=== PATIENT | male | born 1985 ===

== ENCOUNTER 2017-05-30 21:12 | Emergency (ER) | payer BC, OTHER ==
--- NOTE | 2017-05-30 22:10 | UC ---
Throat Pain/Nasal Hernan HPI - HPI Summary HPI Summary: 32 y/o male presents the urgent care c/o fever, chills w/ sore throat for the past 2 days. Pt has taken Tylenol and ibuprofen to alleviate symptoms. Sore throat w/ difficulty swallowing, pain is 3/10. Denies cough, SOB, chest pain, N /V/D. Pt has not other complains. - History of Current Complaint Chief Complaint: UCGeneralIllness Stated Complaint: CHILLS,FEVER Time Seen by Provider: 05/30/17 22:01 Hx Obtained From: Patient Onset/Duration: Gradual Onset, Lasting Days, Still Present Severity: Moderate Pain Intensity: 3 Pain Scale Used: 0-10 Numeric Associated Signs & Symptoms: Positive: Dysphagia, Fever. Negative: Sinus Discomfort, Nasal Discharge, Vomiting, Rash - Epiglottits Risk Factors Epiglottis Risk Factors: Negative - Allergies/Home Medications Allergies/Adverse Reactions: Allergies Allergy/AdvReac Type Severity Reaction Status Date / Time Levofloxacin [From Levaquin] Allergy Rash Verified 05/30/17 21:22 Home Medications: Home Medications Gabapentin TAB(NF) [Neurontin 600 mg TAB(NF)] 600 mg PO BID 05/30/17 [History Confirmed 05/30/17] QUEtiapine TAB* [Seroquel TAB*] 200 mg PO DAILY 05/30/17 [History Confirmed ] PMH/Surg Hx/FS Hx/Imm Hx Previously Healthy: Yes - Surgical History Surgical History: None - Family History Known Family History: Positive: None - Social History Occupation: Employed Full-time Lives: With Family Alcohol Use: None Substance Use Type: None Smoking Status (MU): Never Smoked Tobacco Review of Systems Constitutional: Fever, Chills Skin: Negative Eyes: Negative ENT: Sore Throat Respiratory: Negative Cardiovascular: Negative Gastrointestinal: Negative Genitourinary: Negative Motor: Negative Neurovascular: Negative Musculoskeletal: Negative Neurological: Negative Psychological: Negative All Other Systems Reviewed And Are Negative: Yes Physical Exam Triage Information Reviewed: Yes Appearance: Well-Appearing, No Pain Distress, Well-Nourished, Thin Vital Signs: Initial Vital Signs Temp 98.3 F 05/30/17 21:17 Pulse 96 05/30/17 21:17 Resp 18 05/30/17 21:17 BP 145/82 05/30/17 21:17 Pulse Ox 100 05/30/17 21:17 Vital Signs Reviewed: Yes Eye Exam: Normal Eyes: Positive: Conjunctiva Clear - PERRLS, EOMI, fundi grossly normal ENT: Positive: Normal ENT inspection, Pharyngeal erythema - positive exudate, TMs normal, Tonsillar swelling, Tonsillar exudate Dental Exam: Normal Neck exam: Normal Neck: Positive: Supple, Nontender, Enlarged Nodes @ - anterior cervical lypm node Respiratory Exam: Normal Respiratory: Positive: Chest non-tender, Lungs clear, Normal breath sounds Cardiovascular Exam: Normal Cardiovascular: Positive: RRR, No Murmur, Pulses Normal Abdominal Exam: Normal Abdomen Description: Positive: Nontender, No Organomegaly, Soft. Negative: CVA Tenderness (R), CVA Tenderness (L) Bowel Sounds: Positive: Present Musculoskeletal Exam: Normal Musculoskeletal: Positive: Strength Intact, ROM Intact, No Edema Neurological Exam: Normal Psychological Exam: Normal Skin Exam: Normal Throat Pain/Nasal Course/Dx - Course Course Of Treatment: 32 y/o male presents the urgent care c/o fever, chills w/ sore throat for the past 2 days. Pt has taken Tylenol and ibuprofen to alleviate symptoms. Sore throat w/ difficulty swallowing, pain is 3/10. Denies cough, SOB, chest pain, N/V/D. Pt has not other complains.HX obtaqined. PE abnormal findings:ENT: Positive: Normal ENT inspection, Pharyngeal erythema - positive exudate, TMs normal, Tonsillar swelling, Tonsillar exudate. Rapid strep ordered: result: positive. Pr given first dose amoxicillin 500mg PO at the clinic since pharmacy is closed. Rx Amoxicillin. Pt BP: 145/82. Advsied to monitor blood pressure and decrease salt in diet and if continue to be elevated to f/u with his PCP. Pt understood and agreed. - Differential Dx/Diagnosis Differential Diagnosis/HQI/PQRI: Laryngitis, Mononucleosis, Otitis Media, Pharyngitis, Tonsillitis, URI Provider Diagnoses: 1-Strep pharyngitis. 2-Elevated blood pressure w/o Hx of HTN Discharge - Discharge Plan Condition: Stable Disposition: HOME Prescriptions: Amoxicillin PO (*) [Amoxicillin 875 MG (*)] 875 mg PO BID #20 tab Patient Education Materials: Strep Throat (ED), Low Sodium Diet (ED) Referrals: No Primary Care Phys,NOPCP [Primary Care Provider] - [facility] [Outside] - If Needed Additional Instructions: Please take full course of antibiotic as directed to avoid recurrence or resistance. Please take ibuprofen after meals to alleviate pain and swelling. If symptoms do not improve or worsen please return to the urgent care or f/u with your PCP for further evaluation and treatment. Your blood pressure is elevated today, please decrease salt in your diet and monitor your BP, if it continues to be elevated please f/u with your PCP for further management.
[2017-05-30] MEDS ORDERED: Amoxicillin PO (*) 500 MG CAP PO ONE (22:21)
== END 2017-05-30 22:35 | disposition home or self-care (01) ==
LOC: UCEAST 21:12
DX: J02.0 Streptococcal pharyngitis (principal); R03.0 Elevated blood-pressure reading, without diagnosis of hypertension; Z88.1 Allergy status to other antibiotic agents
CPT/HCPCS: 87651; 99202; A9270-GY; G0463

== ENCOUNTER 2017-06-20 19:04 | Emergency (ER) | payer BC ==
[2017-06-20 19:10] VITALS: BP 142/95
--- NOTE | 2017-06-20 19:51 | UC ---
Knee Pain HPI - HPI Summary HPI Summary: FOUR DAYS OF WORSENING RIGHT KNEE PAIN. TENDER BEHIND KNEE AND CALF, RADIATES TO FRONT OF KNEE AND DOWN LEG. NO KNOWN INJURY. FLEW FROM [place] 06/16/17. PAIN PROGRESSIVELY WORSE. NO SOB. NO CHEST PAIN. - History of Current Complaint Chief Complaint: UCLowerExtremity Stated Complaint: KNEE PAIN Time Seen by Provider: 06/20/17 19:21 Hx Obtained From: Patient Onset/Duration: Gradual Onset, Lasting Days, Worse Since - PROGRESSIVE Severity Initially: Mild Severity Currently: Moderate Pain Intensity: 8 Pain Scale Used: 0-10 Numeric Character: Dull, Aching, Spasmodic Aggravating Factor(s): Movement, Weight Bearing Alleviating Factor(s): Nothing Associated Signs And Symptoms: Positive: Swelling Able to Bear Weight: Yes - Risk Factors Septic Arthritis Risk Factor: Negative Gout Risk Factor: Negative - Allergies/Home Medications Allergies/Adverse Reactions: Allergies Allergy/AdvReac Type Severity Reaction Status Date / Time Levofloxacin [From Levaquin] Allergy Rash Verified 06/20/17 19:10 Home Medications: Home Medications Acetaminophen [Mapap] 1,000 mg PO PRN 06/20/17 [History] Ibuprofen TAB* [Advil TAB*] 400 mg PO PRN 06/20/17 [History] PMH/Surg Hx/FS Hx/Imm Hx Previously Healthy: Yes - Surgical History Surgical History: Yes Surgery Procedure, Year, and Place: SINUS SURGERY, HERNIA REPAIR - Family History Known Family History: Positive: None Negative: Blood Disorder - NO HISTORY OF CLOTS OR PES - Social History Occupation: Employed Full-time Lives: With Family Alcohol Use: None Substance Use Type: None Smoking Status (MU): Never Smoked Tobacco Type: Smokeless Tobacco Review of Systems Constitutional: Negative Skin: Negative Eyes: Negative ENT: Negative Respiratory: Negative Cardiovascular: Negative Gastrointestinal: Negative Genitourinary: Negative Motor: Negative Neurovascular: Negative Musculoskeletal: Arthralgia, Calf Tenderness, Edema - MILD, Myalgia Neurological: Negative Psychological: Negative All Other Systems Reviewed And Are Negative: Yes Physical Exam Triage Information Reviewed: Yes Appearance: Well-Appearing, Well-Nourished, Pain Distress Vital Signs: Initial Vital Signs Temp 98.5 F 06/20/17 19:07 Pulse 88 06/20/17 19:07 Resp 20 06/20/17 19:07 BP 142/95 06/20/17 19:07 Pulse Ox 96 06/20/17 19:07 Vital Signs Reviewed: Yes Eye Exam: Normal ENT Exam: Normal ENT: Positive: Normal ENT inspection, Hearing grossly normal, TMs normal Dental Exam: Normal Neck exam: Normal Neck: Positive: Supple, Nontender Respiratory Exam: Normal Respiratory: Positive: Chest non-tender, Lungs clear, Normal breath sounds, No respiratory distress, No accessory muscle use Cardiovascular Exam: Normal Cardiovascular: Positive: RRR, No Murmur, Pulses Normal Abdominal Exam: Normal Musculoskeletal: Positive: ROM Intact, Strength Limited @ - RIGHT KNEE, Edema @ - RIGHT POPLITEAL FOSSA, Other: - RIGHT CALF AND POPLITEAL FOSSA TENDERNESS Neurological Exam: Normal Psychological Exam: Normal Skin Exam: Normal Knee Pain Course/Dx - Course Course Of Treatment: PATIENT ADVISED TO SEEK CARE AT EMERGENCY DEPARTMENT FOR EVALUATION OF RIGHT KNEE PAIN. PATIENT REFUSED AMBULANCE, ELECTED TO DRIVE TO ED BY PRIVATE CAR. - Differential Dx/Diagnosis Differential Diagnosis/HQI/PQRI: DVT, Fracture (Closed), Internal Derangement Of Knee, Infection, Patellofemoral Syndrome, Sprain, Strain Provider Diagnoses: RIGHT KNEE PAIN Discharge - Discharge Plan Condition: Stable Disposition: HOME Patient Education Materials: Knee Pain (ED) Referrals: [facility] [Outside] No Primary Care Phys,NOPCP [Primary Care Provider] - Additional Instructions: YOU HAVE NONTRAUMATIC PAIN IN BEHIND YOUR RIGHT KNEE. WE STRONGLY ADVISE YOU TO TRAVEL IMMEDIATELY TO THE EMERGENCY DEPARTMENT OF EVALUATION OF YOUR KNEE/LEG PAIN. AN ULTRASOUND MAY BE REQUIRED.
== END 2017-06-20 19:41 | disposition home or self-care (01) ==
LOC: UCEAST 19:04
DX: M25.561 Pain in right knee (principal); Z88.1 Allergy status to other antibiotic agents
CPT/HCPCS: 99211; G0463

== ENCOUNTER 2017-06-20 20:24 | Emergency (ER) | payer BC ==
[2017-06-20 20:38] VITALS: BP 141/92
--- NOTE | 2017-06-20 21:54 | RAD ---
INDICATION: Right leg edema. COMPARISON: There are no prior studies available for comparison. TECHNIQUE: Multiple real-time, color flow and Doppler tracings of the right lower extremity were obtained. FINDINGS: The common femoral, femoral, profunda femoral and popliteal veins all demonstrate normal compressibility, augmentation with compression and phasic response with respiration. The posterior tibial and peroneal veins demonstrate normal compressibility and augmentation with compression. There is a popliteal fossa cyst cyst measuring 5.1 x 2.3 x 4.2 cm. IMPRESSION: 1. NO EVIDENCE FOR DEEP VENOUS THROMBOSIS. 2. LARGE POPLITEAL FOSSA CYST.
[2017-06-20] MEDS ORDERED: predniSONE TAB* 20 MG PO ONE (22:28)
--- NOTE | 2017-06-20 22:28 | ED ---
Lower Extremity - HPI Summary HPI Summary: 32M presents with right leg swelling for 4 days. He denies any recent injury or history of DVT. He had recent flight to [place] which returned 06/16/17. He has history of hip pain. He does not smoke. He denies any family history of blood clots. He denies any chest pain or SOB. He has been taking ibuprofen. He denies any back pain. - History of Current Complaint Chief Complaint: EDExtremityLower Stated Complaint: RT LEG AND KNEE SWOLLEN Time Seen by Provider: 06/20/17 20:46 Pain Intensity: 8 - Allergies/Home Medications Allergies/Adverse Reactions: Allergies Allergy/AdvReac Type Severity Reaction Status Date / Time Levofloxacin [From Levaquin] Allergy Rash Verified 06/20/17 20:38 PMH/Surg Hx/FS Hx/Imm Hx Endocrine/Hematology History: Denies: Hx Diabetes, Hx Thyroid Disease Cardiovascular History: Denies: Hx Hypertension Respiratory History: Denies: Hx Asthma, Hx Chronic Obstructive Pulmonary Disease (COPD) GI History: Denies: Hx Ulcer - Surgical History Surgery Procedure, Year, and Place: SINUS SURGERY, HERNIA REPAIR Infectious Disease History: Yes Infectious Disease History: Denies: Hx Clostridium Difficile, Hx Hepatitis, Hx Human Immunodeficiency Virus (HIV), Hx of Known/Suspected MRSA, Hx Shingles, Hx Tuberculosis, Hx Known/ Suspected VRE, Hx Known/Suspected VRSA, History Other Infectious Disease, Traveled Outside the in Last 30 Days - Family History Known Family History: Positive: None Negative: Blood Disorder - NO HISTORY OF CLOTS OR PES - Social History Alcohol Use: None Substance Use Type: Reports: None Smoking Status (MU): Never Smoked Tobacco Type: Smokeless Tobacco Review of Systems Negative: Fever Negative: Chest Pain Negative: Shortness Of Breath Positive: Edema - right leg All Other Systems Reviewed And Are Negative: Yes Physical Exam Triage Information Reviewed: Yes Vital Signs On Initial Exam: Initial Vitals Temp Pulse Resp BP Pulse Ox 97.8 F 77 20 141/92 97 06/20/17 20:35 06/20/17 20:35 06/20/17 20:35 06/20/17 20:35 06/20/17 20:35 Vital Signs Reviewed: Yes Appearance: Positive: Well-Appearing Skin: Positive: Warm, Dry Head/Face: Positive: Normal Head/Face Inspection Eyes: Positive: Normal, EOMI, AMANDA, Conjunctiva Clear Respiratory/Lung Sounds: Positive: Clear to Auscultation, Breath Sounds Present Cardiovascular: Positive: Normal, RRR Musculoskeletal: Positive: Strength/ROM Intact - right extremity, Edema Right - leg, Other - good pulses, capillary refill< 2 secs, tenderness along edema. Negative: Justina Sign Right Diagnostics - Vital Signs Vital Signs Temp Pulse Resp BP Pulse Ox 06/20/17 20:50 97.8 F 77 20 141/92 97 06/20/17 20:35 97.8 F 77 20 141/92 97 - Laboratory Lab Statement: Any lab studies that have been ordered have been reviewed, and results considered in the medical decision making process. - Ultrasound No standard instances Ultrasound Interpretation: No Acute Changes Ultrasound Interpretation Completed By: Radiologist Lower Extremity Course/Dx - Course Course Of Treatment: 32M presents with right leg swelling for 4 days. He denies any recent injury or history of DVT. He had recent flight to [place] which returned 06/16/17. He has history of hip pain. He does not smoke. He denies any family history of blood clots. He denies any chest pain or SOB. He has been taking ibuprofen. He denies any back pain. on exam edema noted of leg. u/s normal. will treat with prednisone. patient understands and agrees with plan. - Diagnoses Differential Diagnosis/HQI/PQRI: Positive: DVT, Sprain, Strain Provider Diagnoses: Right leg pain Discharge - Discharge Plan Condition: Good Disposition: HOME Prescriptions: Methylprednisolone [Medrol Dosepak 4 MG*] 4 mg PO .SEE ARY INSTRUCTION #1 packet Patient Education Materials: Leg Edema (ED) Referrals: [facility] [place] [facility] [Outside] Additional Instructions: Take Tylenol or ibuprofen every 6 hours as needed for pain Take steroid pack as prescribed Apply ice, elevate Follow up with primary care physician within 5 days Return to ED if develop any new or worsening symptoms
== END 2017-06-20 22:38 | disposition home or self-care (01) ==
LOC: ED 20:24
DX: M79.604 Pain in right leg (principal); M79.89 Other specified soft tissue disorders
CPT/HCPCS: 99282; J7512